=== PATIENT | male | born 1965 | race Caucasian/White ===

== ENCOUNTER 2017-03-09 10:49 | Emergency (ER) | payer MEDICAID ==
[~2017-03-09] VITALS: Ht 190.5 cm; Wt 88.0 kg
[2017-03-09 10:54] VITALS: BP 157/106
[2017-03-09] MEDS ORDERED: FLUCONAZOLE 100 MG TABLET PO ONE (12:30)
== END 2017-03-09 12:57 | disposition home or self-care (01) ==
LOC: ED 12:51
DX: B35.9 Dermatophytosis, unspecified (principal); Z88.1 Allergy status to other antibiotic agents; Z88.8 Allergy status to other drugs, medicaments and biological substances; Z91.040 Latex allergy status
CPT/HCPCS: 99283

== ENCOUNTER 2020-01-22 13:29 | Emergency (ER) | payer MEDICAID ==
[~2020-01-22] VITALS: Ht 188 cm; Wt 86.0 kg
[2020-01-22 13:40] VITALS: BP 133/87
--- NOTE | 2020-01-22 16:16 | NUR ---
NO ANSWER [id number]
== END 2020-01-22 16:18 | disposition left against medical advice (07) ==
LOC: ED 16:05
DX: U07.1 COVID-19 (principal); M79.10 Myalgia, unspecified site; R51.9 Headache, unspecified
CPT/HCPCS: 99281

== ENCOUNTER 2020-04-22 09:21 | Emergency (ER) | payer MEDICAID ==
[~2020-04-22] VITALS: Ht 188 cm; Wt 89.1 kg
[2020-04-22 09:24] VITALS: BP 155/110
[2020-04-22] MEDS ORDERED: DIPH,PERTUSS(ACELL),TET VAC/PF 0.5 ML IM-VACC ONE ×2 (09:51→10:00)
[2020-04-22] MEDS ORDERED: MUPIROCIN OINT 2%, 22GM TP ONE (11:00)
== END 2020-04-22 11:12 | disposition home or self-care (01) ==
LOC: ED 09:57
DX: L03.114 Cellulitis of left upper limb (principal); L03.113 Cellulitis of right upper limb; L03.012 Cellulitis of left finger
CPT/HCPCS: 10060; 90471; 90715

== ENCOUNTER 2020-04-24 07:25 | Inpatient (IN) | payer MEDICAID ==
[~2020-04-24] VITALS: Ht 188 cm; Wt 86.9 kg
--- NOTE | 2020-04-24 07:54 | NUR ---
pt to room from triage
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
[2020-04-24] MEDS ORDERED: SULF1TAB24 PO (08:08)
[2020-04-24] MEDS ORDERED: VANCOMYCIN PER PHARMACY MC ONE (08:30)
[2020-04-24] MEDS ORDERED: SODIUM CHLORIDE FLUSH 10ML SYR IVF ONE (08:30)
[2020-04-24] MEDS ORDERED: AMPICILLIN/SULBACTAM 3 GM in SODIUM CHLORIDE 0.9% 100 ML IV ONE (08:30)
[2020-04-24 08:50] LABS: BASOPHILS % (AUTO) 0 % (0-1); EOSINOPHILS % (AUTO) 1 % (1-7); LYMPHOCYTES % (AUTO) 11 % (22-44); MEAN CORPUSCULAR HEMOGLOBIN 30.6 pg (27.5-34.5); MEAN CORPUSCULAR HGB CONC 33.9 g/dL (33.2-36.2); MEAN PLATELET VOLUME 7.6 fL (7.4-10.4); MONOCYTES % (AUTO) 6 % (2-9); NEUTROPHILS % (AUTO) 82 % (42-75); PLATELET COUNT 295 x10^3/uL (130-400); RED BLOOD COUNT 4.75 x10^6/uL (4.38-5.82); RED CELL DISTRIBUTION WIDTH 13.4 % (9.4-14.8)
[2020-04-24 08:58] LABS: ALBUMIN 3.2 g/dL (3.4-5.0); ANION GAP 7 mmol/L (5-15); CALCIUM 9.2 mg/dL (8.5-10.1); CHLORIDE 109 mmol/L (98-107); CREATININE 1.34 mg/dL (0.7-1.3)
[2020-04-24] MEDS ORDERED: VANCOMYCIN 2,200 MG in SODIUM CHLORIDE 0.9% 500 ML IV ONE (09:00)
--- NOTE | 2020-04-24 09:00 | NUR ---
IV ABX INFUSING WITHOUT REDNESS/SWELLING. PT ASKING ABOUT FOOD. DISCUSSED WITH DR. MEDINA, NPO AT THIS TIME. PT WITH BP 130/103. DR MEDINA NOTIFIED. NO NEW ORDERS. AWAITING FURTHER DISPOSITION.
[2020-04-24 09:12] LABS: MD NO
--- NOTE | 2020-04-24 09:57 | NUR ---
IV ABX CONT TO INFUSE WITHOUT REDNESS/SWELLING. PT AWARE OF TO BE ADMITTED. PT CHANGING INTO HOSPITAL GOWN. REPORT TO PIPER ALCANTARA
--- NOTE | 2020-04-24 09:57 | NUR ---
BEDSIDE REPORT FROM QUINTON BUSTILLOS. PT CARE TO BE ASSUMED. VANCO INFUSING VIA PUMP; IV SITE PATENT. DRESSING ON LT THUMB. LT HAND GROSSLY SWOLLEN.
--- NOTE | 2020-04-24 10:10 | NUR ---
PT IN GOWN; CLOTHING IN BAG EXCEPT FOR SOCKS. PT INFORMED OF PENDING SURGERY. VANCO INFUSING AT 250ML/HR VIA PUMP; IV SITE PATENT. PT A&OX4, RESP EVEN & UNLABORED, SPEECH CLEAR. PT LT FOOT BOOT ON HIS WHEELCHAIR. ALL LEFT TOES WERE PREVIOUSLY AMPUTATED.
--- NOTE | 2020-04-24 10:39 | NUR ---
PT REPORT TO QUINTON GUZMÁN FOR ROOM 365
--- NOTE | 2020-04-24 10:58 | NUR ---
PT TRANSFERRED TO FLOOR. PT'S W/CHAIR AND PERSONAL BELONGINGS SENT TO FLOOR W/ PT.
[2020-04-24] MEDS ORDERED: LORazepam 1MG TABLET PO PRN ×3 (12:00)
[2020-04-24] MEDS ORDERED: TRAZODONE 50MG TABLET PO PRN (12:00)
[2020-04-24] MEDS ORDERED: VANCOMYCIN PER PHARMACY MC PRN (12:00)
[2020-04-24] MEDS ORDERED: ONDANSETRON ODT 4 MG PO PRN (12:00)
[2020-04-24] MEDS ORDERED: POLYETHYLENE GLYCOL 17 GM PACKET PO PRN (12:00)
[2020-04-24] MEDS ORDERED: LORazepam 0.5MG TABLET PO PRN (12:00)
[2020-04-24] MEDS ORDERED: ACETAMINOPHEN 325 MG TABLET PO PRN ×2 (12:00→13:30)
[2020-04-24] MEDS ORDERED: LORazepam 2 MG/ML, 1ML IV PRN ×5 (12:00)
[2020-04-24] MEDS ORDERED: KETOROLAC 30 MG/1 ML IM PRN (12:00)
[2020-04-24] MEDS ORDERED: ONDANSETRON 2MG/ML, 2ML IVPush PRN ×2 (12:00→13:30)
[2020-04-24] MEDS ORDERED: CHLORHEXIDINE 15 ML UDC ONE (12:17)
[2020-04-24] MEDS ORDERED: CHLORHEXIDINE 15 ML UDC MM ONE (12:30)
[2020-04-24] MEDS ORDERED: PHARMACOKINETIC CONSULTATION MC ONE (12:30)
[2020-04-24] MEDS ORDERED: PHARMACOKINETIC MONITORING MC PRN (12:30)
[2020-04-24] MEDS ORDERED: ONDANSETRON 2MG/ML, 2ML ONE (12:57)
[2020-04-24] MEDS ORDERED: PROPOFOL 10 MG/ML, 20ML ONE (12:57)
[2020-04-24] MEDS ORDERED: FENTANYL PF 100 MCG/2ML ONE (12:58)
[2020-04-24] MEDS ORDERED: BUPIVACAINE/PF 0.5% ONE (13:04)
[2020-04-24] MEDS ORDERED: FENTANYL PF 100 MCG/2ML IV PRN (13:30)
[2020-04-24] MEDS ORDERED: OXYcodone 5 MG/5 ML ORAL.SOL UDC PO PRN (13:30)
[2020-04-24] MEDS ORDERED: hydrALAzine 20 MG/ML, 1ML IV PRN (13:30)
[2020-04-24] MEDS ORDERED: HYDROmorphone 1 MG/ML, 1ML INJ IVPush PRN (13:30)
[2020-04-24] MEDS ORDERED: LORazepam 2 MG/ML, 1ML IVPush PRN (13:30)
[2020-04-24] MEDS ORDERED: LABETALOL 5MG/ML, 20ML IV PRN (13:30)
[2020-04-24] MEDS ORDERED: PROMETHAZINE 25 MG SUPP PR PRN (13:30)
[2020-04-24] MEDS ORDERED: PROMETHAZINE 25 MG/ML, 1ML IVPush PRN (13:30)
[2020-04-24 14:48] VITALS: BP 42/92
[2020-04-24] MEDS: CHLORDIAZEPOXIDE 25 MG CAPSULE PO SCH ×3 (15:05→21:31)
[2020-04-24] MEDS: PIPERACILLIN/TAZO/PMX 4.5GM 100 ML IV SCH ×2 (15:12→20:37)
[2020-04-24] MEDS: NS + 20MEQ KCL 1,000 ML IV SCH (15:12)
[2020-04-24] MEDS ORDERED: GABA-827 PO (15:25)
[2020-04-24] MEDS: THIAMINE 200 MG in DEXTROSE 5% 50 ML IVPB SCH (16:07)
[2020-04-24] MEDS: NICOTINE 21 MG/24 HR PATCH.TD24 TD SCH (16:09)
[2020-04-24] MEDS ORDERED: GADOTERATE 10 MMOL/20 ML VIAL ONE (17:14)
[2020-04-24 19:41] VITALS: BP 155/101
[2020-04-24] MEDS ORDERED: VANCOMYCIN 1,700 MG in SODIUM CHLORIDE 0.9% 250 ML IV SCH (21:00)
[2020-04-24 21:45] VITALS: BP 125/82
[2020-04-25 00:31] VITALS: BP 142/96
[2020-04-25] MEDS: CHLORDIAZEPOXIDE 25 MG CAPSULE PO SCH ×4 (03:00→17:56)
[2020-04-25] MEDS ORDERED: VANCOMYCIN 1,700 MG in SODIUM CHLORIDE 0.9% 250 ML IV SCH (03:00)
[2020-04-25] MEDS: PIPERACILLIN/TAZO/PMX 4.5GM 100 ML IV SCH ×4 (03:07→21:02)
[2020-04-25 06:07] LABS: BASOPHILS % (AUTO) 1 % (0-1); EOSINOPHILS % (AUTO) 3 % (1-7); LYMPHOCYTES % (AUTO) 18 % (22-44); MEAN CORPUSCULAR HEMOGLOBIN 31.3 pg (27.5-34.5); MEAN CORPUSCULAR HGB CONC 34.3 g/dL (33.2-36.2); MONOCYTES % (AUTO) 6 % (2-9); NEUTROPHILS % (AUTO) 72 % (42-75); PLATELET COUNT 237 x10^3/uL (130-400); RED BLOOD COUNT 3.95 x10^6/uL (4.38-5.82); RED CELL DISTRIBUTION WIDTH 13.6 % (9.4-14.8)
[2020-04-25 06:28] LABS: MD NO
[2020-04-25] MEDS: NICOTINE 21 MG/24 HR PATCH.TD24 TD SCH (07:53)
[2020-04-25 08:25] LABS: ALANINE AMINOTRANSFERASE 18 U/L (12-78); ALBUMIN 2.9 g/dL (3.4-5.0); ANION GAP 7 mmol/L (5-15); CALCIUM 8.9 mg/dL (8.5-10.1); CHLORIDE 110 mmol/L (98-107)
[2020-04-25 08:28] LABS: ALKALINE PHOSPHATASE 91 U/L (45-117); BILIRUBIN,TOTAL 0.4 mg/dL (0.2-1.0); CREATININE 1.28 mg/dL (0.7-1.3); TOTAL PROTEIN 7.3 g/dL (6.4-8.2)
[2020-04-25 08:42] VITALS: BP 126/85
[2020-04-25] MEDS ORDERED: MULTIVITAMINS/MINERALS TABLET PO SCH (09:00)
[2020-04-25] MEDS ORDERED: SENNA/DOCUSATE TABLET PO SCH (09:00)
[2020-04-25] MEDS: THIAMINE 200 MG in DEXTROSE 5% 50 ML IVPB SCH (09:46)
[2020-04-25] MEDS: NS + 20MEQ KCL 1,000 ML IV SCH (10:39)
[2020-04-25] MEDS ORDERED: ENOXAPARIN 40 MG/0.4 ML SQ SCH (11:00)
[2020-04-25] MEDS: VANCOMYCIN 1,700 MG in SODIUM CHLORIDE 0.9% 250 ML IV SCH (13:36)
[2020-04-25 13:47] VITALS: BP 128/87
[2020-04-25] MEDS: MUPIROCIN OINT 2%, 1 GM APPL. TP SCH ×2 (16:00→21:00)
[2020-04-25 21:09] VITALS: BP 130/84
[2020-04-26 00:29] VITALS: BP 139/88
[2020-04-26] MEDS: NS + 20MEQ KCL 1,000 ML IV SCH (03:06)
[2020-04-26] MEDS: PIPERACILLIN/TAZO/PMX 4.5GM 100 ML IV SCH (03:06)
[2020-04-26] MEDS: CHLORDIAZEPOXIDE 25 MG CAPSULE PO SCH ×2 (05:28)
[2020-04-26] MEDS: VANCOMYCIN 1,700 MG in SODIUM CHLORIDE 0.9% 250 ML IV SCH (05:35)
== END 2020-04-26 08:55 | disposition left against medical advice (07) | DRG 603 ==
LOC: ED 08:38 → SUATTDRO 09:47 → EDIP 10:58 → 3N 11:04
PROVIDERS: ADMIT Family Medicine; ATTEND Internal Medicine
PROC: 0HBGXZZ Excision of Left Hand Skin, External Approach (ICD-10-PCS; principal; 2020-04-24 13:00)
DX: L02.512 Cutaneous abscess of left hand (principal); L03.114 Cellulitis of left upper limb; F15.20 Other stimulant dependence, uncomplicated; F10.20 Alcohol dependence, uncomplicated; F12.90 Cannabis use, unspecified, uncomplicated; F17.210 Nicotine dependence, cigarettes, uncomplicated; Z20.822 Contact with and (suspected) exposure to COVID-19; L03.012 Cellulitis of left finger; Z86.16 Personal history of COVID-19; Z59.0 Homelessness; Z82.3 Family history of stroke; Z88.1 Allergy status to other antibiotic agents; Z91.040 Latex allergy status; Z91.09 Other allergy status, other than to drugs and biological substances; Z88.8 Allergy status to other drugs, medicaments and biological substances; Z89.512 Acquired absence of left leg below knee; Z79.899 Other long term (current) drug therapy
CPT/HCPCS: 36415; 73140; A9575; S0020; 80048; 80053; 80202; 82040; 83605; 83735; 84100; 85025; 87040; 87070; 87075; 87077; 87147; 87186; 87205; 87635; G0378; J0295; J1650; J1885; J2405; J2543; J2704; J3010; J3370; J3411; J3480; J7040; J7050

== ENCOUNTER 2020-09-27 05:24 | Emergency (ER) | payer MEDICAID ==
[~2020-09-27] VITALS: Ht 188 cm; Wt 81.0 kg
[~2020-09-27 05:24] MED LIST: GABA-827 PO; SULF-23 PO
[2020-09-27 05:31] VITALS: BP 130/88
== END 2020-09-27 06:03 ==
LOC: ED 05:56
DX: L03.011 Cellulitis of right finger (principal); F17.200 Nicotine dependence, unspecified, uncomplicated
CPT/HCPCS: 99283

== ENCOUNTER 2020-10-02 17:35 | Emergency (ER) | payer MEDICAID ==
[~2020-10-02] VITALS: Ht 188 cm; Wt 87.0 kg
--- NOTE | 2020-10-02 20:54 | NUR ---
FIRST CONTACT WITH PT. HERE FOR RIGHT PINKY SWELLING AND REDNESS. PT STATES WHOLE PINKY FINGR HAS INCREASED IN SWELLING, OBVIOUS SWELLING NOTED TO FINGER AND REDNESS ACROSS WHOLE PINKY.
[2020-10-02 20:56] LABS: BASOPHILS % (AUTO) 1 % (0-1); EOSINOPHILS % (AUTO) 2 % (1-7); LYMPHOCYTES % (AUTO) 26 % (22-44); MEAN CORPUSCULAR HEMOGLOBIN 31.9 pg (27.5-34.5); MEAN CORPUSCULAR HGB CONC 34.3 g/dL (33.2-36.2); MEAN PLATELET VOLUME 7.1 fL (7.4-10.4); MONOCYTES % (AUTO) 5 % (2-9); NEUTROPHILS % (AUTO) 66 % (42-75); PLATELET COUNT 280 x10^3/uL (130-400); RED BLOOD COUNT 4.26 x10^6/uL (4.38-5.82); RED CELL DISTRIBUTION WIDTH 13.7 % (9.4-14.8)
[2020-10-02 21:01] LABS: ALBUMIN 3.4 g/dL (3.4-5.0); ANION GAP 5 mmol/L (5-15); CALCIUM 8.8 mg/dL (8.5-10.1); CHLORIDE 110 mmol/L (98-107); CREATININE 1.16 mg/dL (0.7-1.3)
[2020-10-02 22:00] VITALS: BP 148/98
[2020-10-02] MEDS ORDERED: LIDOCAINE-MPF 1%, 5ML ONE (22:00)
[2020-10-02] MEDS ORDERED: LIDOCAINE-MPF 1%, 5ML INFIL ONE (22:00)
[2020-10-02] MEDS ORDERED: BACITRACIN ZINC OINT 500U/GM, 0.9 GM ONE (22:15)
== END 2020-10-02 22:56 | disposition home or self-care (01) ==
LOC: ED 20:46
DX: L02.413 Cutaneous abscess of right upper limb (principal); F17.210 Nicotine dependence, cigarettes, uncomplicated
CPT/HCPCS: 10060; 36415; 80048; 82040; 85025; 99284; 99406